=== PATIENT | female | born 1995 ===

== ENCOUNTER 2021-09-21 00:06 | Inpatient (IN) | payer OTHER ==
[2021-09-21] VITALS (55 sets, daily range): BP systolic 11–151; BP diastolic 48–91; PULSE 77–120; TEMP 1
[~2021-09-21] VITALS: Ht 162.6 cm; Wt 95.5 kg
--- NOTE | 2021-09-21 00:10 | NUR ---
0010- PT PRESENTS TO LDR COMPLAINING OF CONTRACTIONS. AMBULATORY TO ROOM LR4, CHANGED INTO GOWN. 0015- EFM X2 APPLIED. PT DENIES LEAKING AMNIOTIC FLUID OR VAGINAL BLEEDING. STATES SHE IS FEELING HER BABY MOVE AND HAS HAD CONTRACTIONS AND BACK PAIN MOST OF THE EVENING. PLAN OF CARE FOR LABOR CHECK DISCUSSED AND QUESTIONS ANSWERED. 0020- SVE BY THIS NURSE 3. DISCUSSED WATCHING PT ON THE MONITOR FOR A LITTLE WHILE DUE TO PT BEING 4CM DILATED IN THE OFFICE. PT AGREEABLE WITH THIS PLAN. 0030- NURSING ADMISSION HISTORY AND ASSESSMENT COMPLETE. 0045- PT WANTS TO WAIT LONGER FOR RECHECK AT THIS TIME. 0120- PT REPORTS FEELING STRONGER CONTRACTIONS. SVE BY THIS NURSE WITH BULGING BAG. PLAN OF CARE FOR ADMISSION AND LABOR DISCUSSED AND QUESTIONS ANSWERED. 0136- PT UP TO BATHROOM. 0140- PT BACK TO BED AND ON MONITOR. 0150- IV START TO LEFT HAND WITH 18G X2 ATTEMPTS. UNABLE TO DRAW LABS OFF IV START. LAB CALLED TO OBTAIN SPECIMENS. LR INFUSING ORDERED. 0210- CONSENTS SIGNED. GUERRERO SAUCEDA CALLED FOR EPIDURAL. 0226- GUERRERO SAUCEDA AT BEDSIDE FOR EPIDURAL PLACEMENT. PT ASSISTED TO SITTING POSITION ON EDGE OF BED. GUERRERO DISCUSSES RISKS OF PROCEDURE AND ANSWERS QUESTIONS. 0231- EPIDURAL SINGL SHOT. PT TOLERATES WELL. 0238- EPIDURAL PROCEDURE COMPLETE. PT DID WELL. PT POSITIONED IN LEFT TILT FOR COMFORT AND MONITORS ADJUSTED. PT REPORTS HER CONTRACTIONS SEEM SHORTER AT THIS TIME.
[2021-09-21] MEDS ORDERED: PRENATAL VITAMI1 T12 PO (00:40)
[2021-09-21 02:25] LABS: BASO % 0.2 % (0.0-2.0); EOS % 0.2 % (0.0-4.0); GRAN # 16.1 K/mm3 (1.4-6.5); GRAN % 87.1 % (42.2-75.2); HEMOGLOBIN 11.9 g/dl (12.5-16.0); LYMPH # 1.3 K/mm3 (1.2-3.4); LYMPH % 6.8 % (20.0-51.0); MEAN CELL VOLUME 89 fl (80.0-100.0); MEAN CORPUSCULAR HEMOGLOBIN 30 pg (27-31); MEAN CORPUSCULAR HGB CONC 34 g/dl (33.0-37.0); MEAN PLATELET VOLUME 11.6 fl (7.4-10.4); MONO % 5.3 % (1.7-9.3); PLATELET COUNT 181 K/mm3 (130-400); RED BLOOD COUNT 3.98 M/mm3 (4.10-5.30); REDCELL DISTRIBUTION WIDTH-CV 13.5 % (11.5-14.5)
[2021-09-21 02:26] LABS: HEMATOCRIT 35.5 % (37.0-47.0)
[2021-09-21 02:41] LABS: ALBUMIN 2.9 gm/dL (3.5-5.0); BILIRUBIN,TOTAL 0.3 mg/dL (0.2-1.2); CREATININE, serum 0.64 mg/dL (0.57-1.11); POTASSIUM 3.8 mmol/L (3.5-4.5); TOTAL PROTEIN 6.9 gm/dL (6.2-8.1)
--- NOTE | 2021-09-21 04:05 | NUR ---
0405- NURSE TO BEDSIDE. PT REPORTS SHE IS COMFORTABLE WITH HER EPIDURAL AND HAS BEEN ABLE TO GET SOME REST. SVE BY THIS NURSE /2. COURTNEY CATHETER PLACED AT THIS TIME WITHOUT DIFFICULTY. PT UPDATED ON PLAN OF CARE AND QUESTIONS ANSWERED. NO FURTHER NEEDS AT THIS TIME. 0545- NURSE TO BEDSIDE. PT REPORTS SHE HAS BEEN SLEEPING. DENIES NEEDS AT THIS TIME. SVE BY THIS NURSE -/-1 WITH BULGING BAG OF CERDA.
--- NOTE | 2021-09-21 07:50 | NUR ---
0750 - MD JULIETH AT BEDSIDE. SVE PERFORMED BY . PATIENT COMPLETE. 0753 - AROM PERFORMED BY MD JULIETH. 0755 - COURTNEY D/C. PATIENT INSTRUCTED ON PUSHING. 0757 - SCOTT CARE PERFORMED. PATIENT PUSHING WITH CONTRACTIONS. GOOD MATERNAL EFFORT. 0800 - PATIENT CONTINUES PUSHING WITH CONTRACTIONS. 0805 - SPONTANEOUS DELIVERY OF . HEAD FOLLOWED BY BODY. GWEN RODRIGUEZ FOR NURSERY ASSUMES CARE OF . 0808 - SPONTANEOUS DELIVERY OF INTACT PLACENTA. PITOCIN BOLUS INFUSING. PERINEUM INTACT. NO REPAIR REQUIRED. PERICARE PERFORMED. CARE ONGOING.
--- NOTE | 2021-09-21 10:48 | NUR ---
PATIENT AMBULATED TO BATHROOM WITH STANDBY ASSIST. PT ABLE TO VOID 800 ML. MESH PANTIES, CLEAN SCOTT PAD, SCOTT CARE PROVIDED. EPIDURAL CATH REMOVED. PT TO RROM 214 VIA W/C. PT ORIENTATED TO ROOM, CALL LIGHT AND BELONGINGS IN REACH.
--- NOTE | 2021-09-21 12:22 | NUR ---
KADEN REPORTED TO THIS RN THAT PATIENT WAS UP TO BATHROOM AND PASSED A LARGE CLOT. PER LIZET PT'S FUNDUS HIGH AND TO THE RIGHT. LIZET CASE PRESENTLY IN PATIENT ROOM TO STRAIGHT CATH PATIENT. 1400 CLEAR URINE OUTPUT NOTED. IMPROVED FUNDAL PLACEMENT AFTER PT CATHERIZED. 100 ML CLOT NOTED. APPROX 170 ML BLOOD LOSS WEIGHED ON SOILED PADS. DR CLANCY INTO ROOM, VORB ORDER FOR METHROGINE 0.2 MG SQ AND 20 PITOCIN IN LR. 1230: 20 IU METHROGINE GIVEN VIA SQ 1235: LR WITH 20 U PITOCIN VIA IV STARTED HEMERRAGE CART TO [facility] OUTSIDE ROOM 1242: COURTNEY CATH INSERTED. 1242: NEW SCOTT PAD APPLIED 1242: 100 GM CLOT NOTED 1245: DR CLANCY AT BEDSIDE, MANUAL SWEEP PREFORMED. 117 GM CLOTS EXTRACTED VS: 139/70. PULSE OX 100%, HR 129 1250: PAIN MEDS GIVEN. TOBY 5 MG, TYLENOL 1000 MG. 1300: NEW PAD AND BED PAD APPLIED. 200 GM EBL TO PERIPAD NOTED. 1305: 95 ML BLOOD LOSS WEIGHED ON PAD. CLEAN PAD APPLIED. 1308: DR. CLANCY AT BEDSIDE. 1310: PATIENT RESTING IN BED, VERBALIZED PAIN IS "BETTER".
--- NOTE | 2021-09-21 13:30 | NUR ---
1330: DR. CLANCY AT BEDSIDE. 800 MG CYTOTEC PLACED RECTALLY. 1330: 220 ML BLOOD LOSS MEASURED ON SCOTT PAD AND BED PAD; CLEAN PAD AND BED PAD APPLIED 1334: ETL DEVELOPER IN ROOM FOR LAB DRAW
[2021-09-21 13:50] LABS: HEMOGLOBIN 10.3 g/dl (12.5-16.0); MEAN CELL VOLUME 89 fl (80.0-100.0); MEAN CORPUSCULAR HEMOGLOBIN 30 pg (27-31); MEAN CORPUSCULAR HGB CONC 34 g/dl (33.0-37.0); MEAN PLATELET VOLUME 11.9 fl (7.4-10.4); PLATELET COUNT 152 K/mm3 (130-400); RED BLOOD COUNT 3.43 M/mm3 (4.10-5.30); REDCELL DISTRIBUTION WIDTH-CV 13.7 % (11.5-14.5)
[2021-09-21 13:51] LABS: HEMATOCRIT 30.6 % (37.0-47.0)
--- NOTE | 2021-09-21 14:40 | NUR ---
1440: This RN into room to check on patients bleeding. Blood clot noted at perineum. Fundal massage given. Fundus firm and at the umbilicus. Large amount of blood and clots expressed with massage. Emergency light pulled. RN instruced CINDY Jaimes to get help. OB telecom network manager, Brian Hutton and set up and charger, Yue Oro to bedside. Following nurses to bedside: Laura Carr Laura, Easlyn K. In house OB, Dr. Wayne called to room. Dr. Fraser called. 1440: O2 initiated via mask at 2L, increased to 10 L at 1443. Patient responsive, decrease in LOC noted. BP stable, noted to be tachycardic. 1445: Bedpad and peripad weighed. 648 QBL noted. 1455: Peripad changed, additional 68 QBL noted. 1500: Patient transferred to wheelchair via 4 person assist. Pt wheeled to pan to transferred to bed to go to OR. After o2 was removed, patient became unresponsive. Alcohol swab to under nose. Verbal and tactile stimulation offered. Patient responsive and tranferred via 4 person lift to bed, then taken to OR. 1446: Dr. Fraser at bedside. Informs patient she will need to go to OR to determine cause of bleeding. 1447: Consent signed by patient and this RN.
--- NOTE | 2021-09-21 15:55 | NUR ---
To pacu via bed with this nurse and alexandreathejillian Schmitt. Nibp on, denies any pain at this time. Report given by anesthesia. Vital signs stable.
--- NOTE | 2021-09-21 16:10 | NUR ---
Rests in bed, alert. Spouse at bedside. Denies any needs at this time.
--- NOTE | 2021-09-21 16:15 | NUR ---
Rests in bed, alert. Baby brought to pacu. Breastfeeds baby. Denies any discomfort at this time.
[2021-09-21 16:21] LABS: HEMATOCRIT 23.7 % (37.0-47.0)
[2021-09-21 16:23] LABS: HEMOGLOBIN 7.7 g/dl (12.5-16.0)
--- NOTE | 2021-09-21 16:35 | NUR ---
To room 221 via bed with two r.n.s Alert, stable. Denies any discomfort or needs at this time. Scds on both legs.
[2021-09-21 16:37] LABS: ALBUMIN 1.9 gm/dL (3.5-5.0); BILIRUBIN,TOTAL 0.3 mg/dL (0.2-1.2); CALCIUM 8.1 mg/dL (8.4-10.2); CREATININE, serum 0.63 mg/dL (0.57-1.11); POTASSIUM 4.3 mmol/L (3.5-4.5); TOTAL PROTEIN 4.4 gm/dL (6.2-8.1)
--- NOTE | 2021-09-21 17:37 | NUR ---
At 1200 this LC/RN advises pt to use restroom as she is c/o cramping and pain from delivery. Pt voids a small amount but asks if clotting in normal. LC notes a clot about 5 cm in diameter and 1-2 cm thick and that it appears there is a clot ant the entroitus. Total fluid in speci galicia is about 200ml. This LC reports to pt's physician about clot, DrMarni Roles states "Don't you have a protocol to follow?". rn unit manager, Brian Heath RN assists this LC in evaluation of pt. Staff nurse notified. Bladder distention noted, clotting observed. Please see staff nurse notes regarding the ongoing care of this pt and her excessive vaginal bleeding.
[2021-09-22] VITALS: BP 106/53; PULSE 98; TEMP 99.2
[2021-09-22 06:28] LABS: HEMATOCRIT 19.6 % (37.0-47.0)
[2021-09-22 06:32] LABS: HEMOGLOBIN 6.1 g/dl (12.5-16.0)
[2021-09-22 06:50] VITALS: BP 118/56; PULSE 93; TEMP 98.2
== END 2021-09-22 16:55 | disposition home or self-care (01) | DRG 768 ==
LOC: LDRO 00:06 → LDR 00:15 → LDRO 01:30 → LDR 01:31 → OB 17:35
PROVIDERS: Obstetrics & Gynecology; ADMIT Obstetrics & Gynecology
PROC: 10E0XZZ Delivery of Products of Conception, External Approach (ICD-10-PCS; principal; 2021-09-21)
PROC: 0UQC7ZZ Repair Cervix, Via Natural or Artificial Opening (ICD-10-PCS; 2021-09-21)
PROC: 10D17ZZ Extraction of Products of Conception, Retained, Via Natural or Artificial Opening (ICD-10-PCS; 2021-09-21)
DX: O72.1 Other immediate postpartum hemorrhage (principal); Z37.0 Single live birth; D62 Acute posthemorrhagic anemia; O71.3 Obstetric laceration of cervix; O90.81 Anemia of the puerperium; Z3A.39 39 weeks gestation of pregnancy
CPT/HCPCS: J2210; J2250; J2405; J2590; J2704; J3010; J7120